=== PATIENT | male | born 2000 | race African-American/Black ===

== ENCOUNTER 2019-12-22 20:02 | Emergency (ER) | payer OTHER ==
[~2019-12-22] VITALS: Ht 182.9 cm; Wt 77.3 kg
[2019-12-22 20:07] VITALS: TEMP 98.6
[2019-12-22 21:07] LABS: HEMATOCRIT 40.3 % (36.0-47.0); HEMOGLOBIN 13.6 g/dl (12.5-16.1); MEAN CELL VOLUME 85 fl (80.0-95.0); MEAN CORPUSCULAR HEMOGLOBIN 29 pg (26.0-32.0); MEAN CORPUSCULAR HGB CONC 34 g/dl (33.0-37.0); MEAN PLATELET VOLUME 11.3 fl (7.4-10.4); PLATELET COUNT 194 K/mm3 (130-400); RED BLOOD COUNT 4.74 M/mm3 (4.20-5.60); REDCELL DISTRIBUTION WIDTH-CV 12.2 % (11.5-14.5)
[2019-12-22 21:19] LABS: ALANINE AMINOTRANSFERASE 17 U/L (21-72); ALBUMIN 4.3 gm/dL (3.5-5.0); ALKALINE PHOSPHATASE 82 U/L (50-136); ANION GAP 10 mmol/L (7-16); AST,SGOT 23 U/L (15-37); BILIRUBIN,TOTAL 0.5 mg/dL (0.0-1.0); BLOOD UREA NITROGEN 17 mg/dL (9-20); CALCIUM 9.5 mg/dL (8.4-10.2); CARBON DIOXIDE 26 mmol/L (22-30); CHLORIDE 104 mmol/L (98-107); CREATININE, serum 1.14 (0.66-1.25); GLUCOSE 86 mg/dL (74-106); POTASSIUM 3.9 mmol/L (3.4-5.0); SODIUM 139 mmol/L (137-145); TOTAL PROTEIN 7.2 gm/dL (6.4-8.2)
[2019-12-22 21:21] LABS: C-REACTIVE PROTEIN < 0.5 mg/dL (0.0-0.9)
[2019-12-22 21:38] LABS: COLLECTION METHOD CLEAN CATCH
[2019-12-22 21:54] LABS: MUCOUS Present /lpf; PH 6 (5-8); SQUAMOUS EPITHELIAL None Seen /hpf; URINE APPEARANCE Clear; URINE BACTERIA None Seen /hpf; URINE BILIRUBIN Negative (NEGATIVE); URINE BLOOD Negative (NEGATIVE); URINE COLOR Yellow; URINE GLUCOSE Negative (NEGATIVE); URINE KETONE Negative (NEGATIVE); URINE LEUKOCYTE ESTERASE Negative (NEGATIVE); URINE NITRATE Negative (NEGATIVE); URINE PROTEIN(semi-quant) Negative (NEGATIVE); URINE RBC None Seen /hpf; URINE UROBILINOGEN Negative (NEGATIVE); URINE WBC None Seen /hpf
[2019-12-22 21:57] VITALS: BP 127/66; PULSE 87
[2019-12-23 00:33] LABS: BAND 7 % (0-10); EOSINOPHIL 2 % (0-4); LYMPHOCYTE 44 % (20.0-51.0); NEUTROPHILS 41 % (42.0-75.2)
== END 2019-12-22 21:58 | disposition home or self-care (01) ==
LOC: COL.ER 20:02
PROVIDERS: Emergency Medicine
DX: K40.90 Unilateral inguinal hernia, without obstruction or gangrene, not specified as recurrent (principal)